=== PATIENT | male | born 1970 | race Two or more races ===

== ENCOUNTER 2024-05-22 13:12 | Emergency (ER) | payer OTHER ==
[~2024-05-22] VITALS: Ht 175.3 cm; Wt 72.1 kg
[2024-05-22 15:01] VITALS: BP 131/81; TEMP 97.8; O2SAT 98
== END 2024-05-22 15:02 | disposition home or self-care (01) ==
LOC: ER 13:29
DX: R20.2 Paresthesia of skin (principal); F10.10 Alcohol abuse, uncomplicated; I10 Essential (primary) hypertension; Z88.8 Allergy status to other drugs, medicaments and biological substances; Z88.5 Allergy status to narcotic agent; Y90.9 Presence of alcohol in blood, level not specified